=== PATIENT | female | born 1995 ===

== ENCOUNTER 2017-12-30 16:10 | Outpatient (CLI) | payer OTHER ==
[2017-12-30] MEDS ORDERED: PRENATAL TABLE1 EAC1 PO (19:12)
[2017-12-31] MEDS ORDERED: KEFLEX500 MG PO (19:20)
== END 2017-12-31 21:00 | disposition home or self-care (01) ==
LOC: OBS/DEL 16:10
DX: O26.893 Other specified pregnancy related conditions, third trimester (principal); R53.1 Weakness; R10.2 Pelvic and perineal pain; O23.43 Unspecified infection of urinary tract in pregnancy, third trimester; Z34.03 Encounter for supervision of normal first pregnancy, third trimester

== ENCOUNTER 2018-01-29 17:32 | Inpatient (IN) | payer OTHER ==
[~2018-01-29] VITALS: Ht 157.5 cm; Wt 141.0 kg
[~2018-01-29 17:32] MED LIST: KEFLEX500 MG PO; PRENATAL TABLE1 EAC1 PO
[2018-01-29] MEDS ORDERED: ACTIGALL300 MG PO (18:46)
== END 2018-01-31 13:41 | disposition home or self-care (01) | DRG 781 ==
LOC: LDR 17:32
PROC: 4A1HXCZ Monitoring of Products of Conception, Cardiac Rate, External Approach (ICD-10-PCS; principal; 2018-01-29)
DX: O26.613 Liver and biliary tract disorders in pregnancy, third trimester (principal); K83.1 Obstruction of bile duct

== ENCOUNTER 2018-02-02 07:58 | Inpatient (IN) | payer OTHER ==
[~2018-02-02] VITALS: Ht 157.5 cm; Wt 64.0 kg
[~2018-02-02 07:58] MED LIST changes: +ACTIGALL300 MG PO
== END 2018-02-04 14:57 | DRG 775 ==
LOC: LDR 07:58 → OB/GYN 14:00
PROC: 0UQGXZZ Repair Vagina, External Approach (ICD-10-PCS; principal; 2018-02-02)
PROC: 10E0XZZ Delivery of Products of Conception, External Approach (ICD-10-PCS; 2018-02-02)
PROC: 3E033VJ Introduction of Other Hormone into Peripheral Vein, Percutaneous Approach (ICD-10-PCS; 2018-02-02)
PROC: 4A1HXCZ Monitoring of Products of Conception, Cardiac Rate, External Approach (ICD-10-PCS; 2018-02-02)
PROC: 4A033R1 Measurement of Arterial Saturation, Peripheral, Percutaneous Approach (ICD-10-PCS; 2018-02-02)
DX: O71.4 Obstetric high vaginal laceration alone (principal); O60.14X0 Preterm labor third trimester with preterm delivery third trimester, not applicable or unspecified; K83.1 Obstruction of bile duct; O26.62 Liver and biliary tract disorders in childbirth; Z3A.36 36 weeks gestation of pregnancy; Z37.0 Single live birth

== ENCOUNTER 2021-02-03 08:18 | Inpatient (IN) | payer OTHER ==
[~2021-02-03] VITALS: Ht 157.5 cm; Wt 64.9 kg
== END 2021-02-05 13:20 | disposition home or self-care (01) | DRG 807 ==
LOC: LDR 08:18 → OB/GYN 13:06 → LDR 13:12 → OB/GYN 15:31
PROVIDERS: ADMIT Specialist; ATTEND Specialist
PROC: 10E0XZZ Delivery of Products of Conception, External Approach (ICD-10-PCS; principal; 2021-02-03)
PROC: 10907ZC Drainage of Amniotic Fluid, Therapeutic from Products of Conception, Via Natural or Artificial Opening (ICD-10-PCS; 2021-02-03)
PROC: 3E033VJ Introduction of Other Hormone into Peripheral Vein, Percutaneous Approach (ICD-10-PCS; 2021-02-03)
PROC: 4A1HXFZ Monitoring of Products of Conception, Cardiac Rhythm, External Approach (ICD-10-PCS; 2021-02-03)
DX: O80 Encounter for full-term uncomplicated delivery (principal); Z37.0 Single live birth; Z3A.39 39 weeks gestation of pregnancy; Z20.822 Contact with and (suspected) exposure to COVID-19